=== PATIENT | female | born 1960 | race Caucasian/White ===

== ENCOUNTER 2017-08-08 21:11 | Emergency (ER) | payer OTHER ==
[~2017-08-08] VITALS: Ht 188 cm; Wt 110.0 kg
[~2017-08-08 21:11] MED LIST: ALEVE220 M2 OR; AMOXICILLIN500 MG OR; AMOXICILLIN500 MG PO; ASPIRIN LOW DOS81 M2 PO; FLEXERIL PO; GABAPENTIN100 MG PO; GABAPENTIN600 MG PO; GLIPIZIDE10 MG PO; GLIPIZIDE5 MG PO; LANTUS100 MG/ML SC; LASIX 40 MG40 MG/TAB PO; LASIX 80 MG TAB80 M1 PO; LASIX40 MG PO; LEVAQUIN500 MG PO; LISINOP/HCTZ1 TA1 PO; LORTAB 1010 MG PO; MEGACE20 MG/TAB PO; MELOXICAM15 MG PO; METFORMIN HCL1000 MG PO; METFORMIN500 M1 PO; METFORMIN500 M2 OR; METFORMIN500 M2 PO; PERCOCET 5/325M1 TAB OR; POT CHLORIDE10 ME5 PO; PREDNISONE20 MG PO; QVAR80 MCG IN; TRAMADOL HCL50 MG PO; ULTRAM50 M1 PO; ULTRAM50 MG OR; VENTOLIN HFA IN
[2017-08-08] MEDS ORDERED: ULTRAM50 M1 PO (21:53)
[2017-08-08 22:11] VITALS: BP 171/84
== END 2017-08-08 22:12 | disposition home or self-care (01) | DRG 556 ==
LOC: ED 21:11
DX: M79.672 Pain in left foot (principal); S90.32XA Contusion of left foot, initial encounter; W19.XXXA Unspecified fall, initial encounter

== ENCOUNTER 2019-01-04 11:42 | Emergency (ER) | payer OTHER ==
[~2019-01-04] VITALS: Ht 180.3 cm; Wt 129.5 kg
[~2019-01-04 11:42] MED LIST changes: +ADULT ASPIRIN E81 MG PO; +ALPRAZOLAM0.5 M2 PO; +APRESOLINE25 MG/TAB PO; +CARVEDILOL12.5 MG PO; +CARVEDILOL6.25 MG PO; +COREG6.25 MG PO; +CYMBALTA30 MG PO; +DOXYCYCL HYC100 MG PO; +FUROSEMIDE80 M1 PO; +LEVEMIR100 UNIT/M SC; +LIPITOR40 M1 PO; +LISINOPRIL20 M1 PO; +NEURONTIN600 MG PO; +VITAMIN D50000 UNIT PO
[2019-01-04 12:14] LABS: HEMATOCRIT 27.6 % (37.0-47.0); HEMOGLOBIN 8.5 g/dl (12.0-16.0); IMMATURE GRANULOCYTES 0.6 % (0.0-5.0); MEAN CORPUSCULAR HGB 24.9 pG CALC (26.0-32.0); MEAN CORPUSCULAR HGB CONC 30.8 g/L CALC (32.0-36.0); NEUT# 5.32 thou/uL (2.00-7.15); RED BLOOD COUNT 3.41 mill/uL (4.20-5.60)
[2019-01-04 12:32] LABS: MEAN CELL VOLUME 80.9 fL CALC (80.0-100.0)
[2019-01-04 12:39] LABS: ALBUMIN 3.5 g/dL (3.2-5.0); CREATININE 2.3 mg/dL (0.5-1.0); PROTHROMBIN TIME 10.1 SECONDS (9.0-12.5); TOTAL PROTEIN 6.5 g/dL (6.3-8.2)
[2019-01-04 12:51] LABS: BILIRUBIN, TOTAL 0.3 mg/dL (0.0-1.4)
[2019-01-04 14:29] VITALS: BP 139/52
[2019-01-04 14:40] VITALS: BP 139/52
== END 2019-01-04 14:28 ==
LOC: ED 11:42
PROVIDERS: Family Medicine
DX: K92.2 Gastrointestinal hemorrhage, unspecified (principal); D64.9 Anemia, unspecified; E11.65 Type 2 diabetes mellitus with hyperglycemia; Z79.4 Long term (current) use of insulin; R53.1 Weakness; R00.2 Palpitations; R25.2 Cramp and spasm; R94.31 Abnormal electrocardiogram [ECG] [EKG]
CPT/HCPCS: P9016

== ENCOUNTER 2020-04-10 13:07 | Inpatient (IN) | payer MEDICARE, OTHER ==
[~2020-04-10] VITALS: Ht 180.3 cm; Wt 142.4 kg
[2020-04-10] VITALS (7 sets, daily range): BP systolic 153–211; BP diastolic 11–111
--- NOTE | 2020-04-10 13:07 | NUR ---
PT TO ROOM VIA W.C
--- NOTE | 2020-04-10 13:36 | NUR ---
PT SEEN BY DR THOMAS AT THIS TIME, SHORT OF BREATH STATED X 3 WEEKS.
[2020-04-10 14:52] LABS: HEMATOCRIT 29.5 % (37.0-47.0); HEMOGLOBIN 8.3 g/dl (12.0-16.0); IMMATURE GRANULOCYTES 0.3 % (0.0-5.0); MEAN CELL VOLUME 90.8 fL CALC (80.0-100.0); MEAN CORPUSCULAR HGB 25.5 pG CALC (26.0-32.0); MEAN CORPUSCULAR HGB CONC 28.1 g/dL CAL (32.0-36.0); NEUT# 6.43 thou/uL (2.00-7.15); RED BLOOD COUNT 3.25 mill/uL (4.20-5.60); RED CELL DISTRI WIDTH 14.9 % (11.5-15.5)
[2020-04-10 15:24] LABS: ALBUMIN 3.3 g/dL (3.2-5.0); CREATININE 4.4 mg/dL (0.5-1.0); POTASSIUM 4.4 mmol/l (3.5-5.1); TOTAL PROTEIN 6.8 g/dL (6.3-8.2)
[2020-04-10 15:34] LABS: BILIRUBIN, TOTAL 0.3 mg/dL (0.0-1.4)
[2020-04-10 15:43] LABS: URINE BILIRUBIN - DIPSTICK NEGATIVE (NEGATIVE); URINE BLOOD DIPSTICK MODERATE (NEGATIVE); URINE COLOR YELLOW; URINE GLUCOSE - DIPSTICK 250 mg/dL (NEGATIVE); URINE KETONE NEGATIVE (NEGATIVE); URINE LEUK ESTERASE NEGATIVE (NEGATIVE); URINE NITRITE - DIPSTICK NEGATIVE (Negative); URINE PROTEIN - DIPSTICK >=300 mg/dL (NEG-TRACE); URINE SPECIFIC GRAVITY 1.025; URINE UROBILINOGEN - DIPSTICK 0.2 E.U./dL (0.2)
[2020-04-10 15:52] LABS: URINE SQUAMOUS EPITHELIAL CELL FEW EPI/hpf (0-FEW)
[2020-04-10] MEDS ORDERED: NIFEDIPINE30 MG PO (19:18)
--- NOTE | 2020-04-10 19:24 | NUR ---
RECEIVED HAND OFF REPORT FROM SHERI, PATIENT AWAKE AND ALERT, REFUSING CONTINUED VITAL MONITORING. PATIENT REFUSED ADMINISTRATION OF LASIX, STATES THAT HER DOCTOR DOES NOT WANT HER TO TAKE LASIX R/T HER KIDNEY FUNCTION, NOTIFIED.
--- NOTE | 2020-04-10 19:31 | NUR ---
PATIENT AWAITING ORDERS FROM ADMITTING PHYSICIAN BEFORE TRANSFER TO INPATIENT TREATMENT ROOM.
--- NOTE | 2020-04-10 20:15 | NUR ---
HAND OFF REPORT GIVEN TO INPATIENT ICU NURSE, PATIENT TO ICU BED 8.
[2020-04-10] MEDS ORDERED: LIPITOR40 M1 PO (20:41)
[2020-04-10] MEDS ORDERED: VENTOLIN HFA IN (20:42)
--- NOTE | 2020-04-10 21:00 | NUR ---
PT. ARRIVED TO THE FLOOR VIA STRETCHER ACCOMPANIED BY ER NURSE @2029. PT. IS WITH LABORED BREATHING AND EXERTIONAL SOB NOTED WELL. CARBON FURNACE OPERATOR HELPER APPLIED AND READING SR. SPO2 WNL ON 2LITERS/MIN PER NC. PT. DENIES WEARING ANY AT HOME. REPORTING SOB X3 WEEKS AND REPORTS SHE WILL NOT TAKE LASIX HER DR (DR. BOSTON), INSTRUCTED HER NOT TO TAKE THIS MEDICATION IT IS DAMAGING TO THE KIDNEYS. WILL NOTIFY PRIMARY MD OF THIS. UPDATED ON POC. TRACE EDEMA NOTED TO BLE AND SOME EDEMA NOTED TO ABDOMEN. B/P IS ELEVATED WILL NOTIFY MD WELL FOR B/P MEDICATIONS. IV SITE PATENT AND SL TO RIGHT HAND. ERICA HOSE APPLIED TO BLE. PT. REPORTS LAST BM APPROXIMATELY 3 DAYS AGO, BUT REPORTS INTERMITTENT DIARRHEA FOR THE PAST 3 WEEKS AND DECLINES LAXATIVE. ENCOURAGED TO CALL FOR ANY NEEDS. CALL LIGHT IS IN REACH. WILL CONTINUE TO MONITOR.
--- NOTE | 2020-04-10 21:21 | NUR ---
NOTIFIE DR. PADGETT OF PT'S REFUSAL OF LASIX WELL WHO IS PT'S KINDEY ALSO NOTIFIED HIM OF ELEVATED B/P 190/81; NEW ORDERS RECIEVED AND TO BE CARRIED OUT.
--- NOTE | 2020-04-10 21:52 | NUR ---
AFTER MORE EDUCATION PT. DID AGREE TO TAKE PM DOSE OF LASIX. MEDICATED WITH PRN APRESOLINE FOR B/P ; WILL REASSESS AND CONTINUE TO MONITOR.ALSO MEDICATED WITH OTHER PM MEDS. PT. PROVIDED WITH DINNER MEAL. ENCOURAGED TO CALL FOR ANY NEEDS. CALL LIGHT IS IN REACH.
[2020-04-11] VITALS (68 sets, daily range): BP systolic 61–176; BP diastolic 45–83
--- NOTE | 2020-04-11 | NUR ---
PT. RESTING IN BED WITH NO DISTRESS NOTED; DENIES NEEDS. CALL LIGHT IS IN REACH. B/P WNL(150/67). WILL CONTINUE TO MONITOR.
--- NOTE | 2020-04-11 02:18 | NUR ---
PT. COUGHING AND INDUCED VOMITING; EMESIS NOTED TO BASIN ALONG WITH WHITE SPUTUM; MEDICATED WITH ONE TIME ZOFRANAND IV SITE FLUSHED. PT. HAS STRESS INCONTINENCE AND ASSISTED WITH MONICA CARE AND MONICA PAD CHANGED AT THIS TIME. MOUTHWASH PROVIDED. ENCOURAGED TO CALL FOR ANY NEEDS. CALL LIGHT IS IN REACH.
--- NOTE | 2020-04-11 04:00 | NUR ---
resting in bed with eyes closed; resp. even and unlabored. call light is in reach.
--- NOTE | 2020-04-11 05:48 | NUR ---
PT. RESTING IN BED ON RIGHT SIDE WITH EYES CLOSED; AROUSES EASILY. O2 INFUSING @2LITERS/MIN AND SPO2 88%; INCREASED TO 3LITERS/MIN AND SPO2 UP TO 93%. WILL CONTINUE TO MONITOR. VSS. DENIES NEEDS. CALL LIGHT IS IN REACH. COMMODE EMPTIED.
--- NOTE | 2020-04-11 06:45 | NUR ---
REPORT RECEIVED FROM DONATO DOZIER. CARE ASSUMED.
[2020-04-11 06:47] LABS: CHOLESTEROL HDL RATIO 2.7 (<4.4 (CALC)); MAGNESIUM 1.4 mg/dL (1.6-2.3)
--- NOTE | 2020-04-11 07:00 | NUR ---
PT SITTING UP ON SIDE OF BED. PT HAS TAKEN OFF O2. PT ENCOURAGED TO GET BACK IN BED. PLACED PT BACK ON O2. PT IS ALERT AND ORIENTED X3. SHIFT ASSESSMENT COMPLETED AT THIS TIME. IV PATENT X1. PT REQUESTED WATER. GAVE CUP FROM BEDSIDE TABLE. PT STATES THIS WATER IS HOT. EXPLAINED WOULD BRING ICE WATER. THIS NURSE RETURNED TO ROOM WITH ICE WATER AND PATIENT HAD THROWN CUP OF WATER ON FLOOR. CLEANED WATER OFF OF FLOOR AND PT STATES YOU GONNA GET ME THAT WATER. ICE WATER POURED FOR PATIENT. CALL LIGHT IN REACH. WILL CONTINUE TO MONITOR.
[2020-04-11 07:37] LABS: BILIRUBIN, TOTAL 0.2 mg/dL (0.0-1.4); CREATININE 4.4 mg/dL (0.5-1.0); POTASSIUM 4.6 mmol/l (3.5-5.1); TOTAL PROTEIN 6.3 g/dL (6.3-8.2)
--- NOTE | 2020-04-11 10:04 | NUR ---
RT AT BEDSIDE FOR 6 MINUTE WALK TEST. PT QUALIFIES FOR HOME O2
--- NOTE | 2020-04-11 10:05 | NUR ---
PHONED SON WITH NUMBER ON CHART NUMBER DISCONNECTED. CALLED HOME NUMBER ON CHART LEFT MESSAGE TO CALL ICU IN REFERENCE TO GIVE UPDATE AND FIND OUT MOTHERS BASELINE
--- NOTE | 2020-04-11 10:24 | NUR ---
PT APPEARS TO BE MORE LETHARGIC. PT REMAINS ALERT AND ORIENTED X3. RT AT BEDSIDE FOR ABG. ACCU CHECK 161. PT ASSISTED BACK UP TO BED.
--- NOTE | 2020-04-11 10:30 | NUR ---
Snehal SUE APRN NOTIFIED OF ABG RESULTS.
--- NOTE | 2020-04-11 10:41 | NUR ---
VERBAL ORDERS RECEIVED TO PLACE PATIENT ON BIPAP.
--- NOTE | 2020-04-11 10:45 | NUR ---
LOZADA PLACED USING STERILE TECHNIQUE. IMMEADIATE RETURN OF CLOUDY URINE WITH SEDIMENT. PT TOLERAED WELL. RT AT BEDSIDE TO PLACE PT ON BIPAP. J VEST SACK SEWER ON UNIT TO REASSESS PT.
--- NOTE | 2020-04-11 11:06 | NUR ---
PT PLACED ON BIPAP S/P ABG OBTAINED FOR CHANGE IN MENTATION. CURRENT BIPAP SETTINGS MAINTAINING SUFFICENT MIN VENTILATION. PT RESTING COMFORTABLY, ABG TO BE OBTAINED IN 1 HOUR S/P INITIATION OF BIPAP. MECHANICAL INVASIVE VENTILATOR ALONG WITH INTUBATION EQUIPMENT AND BMV AT THE BEDSIDE ON S/B.
--- NOTE | 2020-04-11 11:30 | NUR ---
RT AT BEDSIDE FOR REPEAT ABG.
[2020-04-11 11:36] LABS: C-REACTIVE PROTEIN 1.6 mg/dL (0-0.9)
--- NOTE | 2020-04-11 11:45 | NUR ---
Snehal SUE APRN NOTIFIED OF ABG RESULTS. DR PADGETT AND DR C[place] NOTIFIED WELL. IT WAS DECIDED TO INTUBATE PATIENT AT THIS TIME. DR THOMAS IN ER CALLED TO COME AND ASSIST WITH SEDATION, INTUBATION, AND CENTRAL LINE PLACEMENT.
--- NOTE | 2020-04-11 12:10 | NUR ---
DR THOMAS AT BEDSIDE 1219- CENTRAL LINE PLACED RIGHT FEMORAL 1221- ETOMIDAE 20MG IVP BY DR THOMAS 1222- SUUCINLCHOLINE 100MG IVP BY DR THOMAS 1223- 8.0 ET TUBE 24@ LIP VERIFIED BY AUSCULTATION AND POSITIVE COLOR CHANGE ON CO2 INDICATOR 1225- OG PLACED AND VERIFIED BY AUSCULTATION 1228- RADIOLOGY AT BEDSIDE FOR CXR FOR VERIFICAION OF TUBE PLACEMENT 1230- BILATERAL SOFT WRIST RESTRAINTS PLACED ON PT 1235- #22 RH DC'D DUE TO OCCLUSION CATH TIP INTACT
--- NOTE | 2020-04-11 12:30 | NUR ---
CBC AND NOON TROPONIN OBTAINED FROM [facility] AND SENT TO LAB AT THIS TIME.
--- NOTE | 2020-04-11 12:39 | NUR ---
PHONED HOME NUMBER TO UPDATE THAT PT HAD BEEN INTUBATED. LEFT MESSAGE TO CALL ICU.
--- NOTE | 2020-04-11 12:45 | NUR ---
PT NOTED TO HAVE HYPOTENSION. IVF STARTED AT THIS TIME. Eulalia VYAS APRN AT BEDSIDE TO EVALUATE PATIENT WELL. ORDERS RECEIVED TO GIVE 500CC NS BOLUS. GAVE OFF OF IVF HANGING. WILL CONTINUE TO CLOSELY MONITOR
[2020-04-11 12:50] LABS: HEMATOCRIT 27.6 % (37.0-47.0); HEMOGLOBIN 7.5 g/dl (12.0-16.0); IMMATURE GRANULOCYTES 0.8 % (0.0-5.0); MEAN CELL VOLUME 94.2 fL CALC (80.0-100.0); MEAN CORPUSCULAR HGB 25.6 pG CALC (26.0-32.0); MEAN CORPUSCULAR HGB CONC 27.2 g/dL CAL (32.0-36.0); NEUT# 6.74 thou/uL (2.00-7.15); RED BLOOD COUNT 2.93 mill/uL (4.20-5.60); RED CELL DISTRI WIDTH 15.2 % (11.5-15.5)
--- NOTE | 2020-04-11 13:00 | NUR ---
DR PADGETT NOTIFIED OF CBC RESULTS AND HYPOTENSION. NEW ORDERS RECIEVED. HE WILL NOTIFY DR BOSTON OF CONSULT
--- NOTE | 2020-04-11 13:01 | NUR ---
PT INTUBATED BY DR. THOMAS AT 12:23 ET TUBE 8.0 SECURED 22 @ LIP. PT PLACED ON VENTILATOR WITH ORDERED SETTINGS. ABG ORDERED FOR ONE HR.
--- NOTE | 2020-04-11 13:45 | NUR ---
RT AT BEDSIDE FOR REPEAT ABG.
--- NOTE | 2020-04-11 14:00 | NUR ---
DR PADGETT CALLED WITH ABG RESULTS. NEW ORDERS RECEIVED.
--- NOTE | 2020-04-11 14:03 | NUR ---
ABG RESULTS CALLED TO DR. PADGETT BY JACOBY CARVER. RR INCREASED TO 22 FIO2 DECREASED TO 50% WILL REPEAT ABG IN ONE HR.
--- NOTE | 2020-04-11 14:25 | NUR ---
TYPE AND SCREEN COMPLETED FROM [facility] BY THIS NURSE AND Indra ATKINSON. PT REMAINS INTUBATED AND SEDATED. VSS ON MONITOR. WILL CONTINUE TO MONITOR.
--- NOTE | 2020-04-11 14:44 | NUR ---
PHONED HOME PHONE [phone] LEFT MESSAGE AGAIN. ATTEMPTING TO OBTAIN CONSENT TO GIVE BLOOD.
--- NOTE | 2020-04-11 14:54 | NUR ---
FRIEND ZACK CALLED GAVE INCORRECT CODE ASKED TO HAVE HER DAUGHTER CALL ICU.
--- NOTE | 2020-04-11 15:00 | NUR ---
SPOKE WITH DAUGHTER NETTA ORTIZ WHO GAVE TELEPHONE VERBAL CONSENT WITH WITNESS Indra ATKINSON.
--- NOTE | 2020-04-11 15:30 | NUR ---
1 UNIT OF PRBCS STARTED AT THIS TIME VIA [facility].
--- NOTE | 2020-04-11 15:38 | NUR ---
RT AT BEDSIDE AT THIS TIME FOR REPEAT ABG.
--- NOTE | 2020-04-11 15:45 | NUR ---
DAUGHTER NETTA PHONED FOR UPDATE WITH MULTIPLE PEOPLE ON PHONE. UPDATE PROVIDED.
--- NOTE | 2020-04-11 15:49 | NUR ---
DR PADGETT PHONED BACK THAT HE SPOKE WITH [facility] INSTANTIZER OPERATOR AND HE WILL CALL PERSONAL ASSISTANT MD.
--- NOTE | 2020-04-11 16:00 | NUR ---
$1010.00 REMOVED FROM PT ROOM VERIFIED WITH NURSING INVESTMENT PROFESSIONAL Travon BOWER AND PLACED IN SEALED TAMPER PROOF ENVELOPE. DUE TO PATIENT BEING TRANSFERRED THE SEALED ENVELOPE WILL BE SENT WITH PATIENT TO CIRILO KESSLER.
--- NOTE | 2020-04-11 16:11 | NUR ---
ABG RESULTS 15:49 7.28/39.7/173/18.2 DECREASED RATE TO 18 AND FIO2 40%. JACOBY VÁZQUEZ.
--- NOTE | 2020-04-11 16:14 | NUR ---
SON PLACIDO ON UNIT. UPDATED ON STATUS AND PENDING TRANSFER. ONLY OBSERVED THROUGH DOOR
--- NOTE | 2020-04-11 16:27 | NUR ---
PT RESTING IN BED INTUBATED AND SEDATED. VSS ON MONITOR. WILL CONTINUE TO CLOSELY MONITOR.
--- NOTE | 2020-04-11 17:45 | NUR ---
PT RESTING IN BED INTUBATED AND SEDATED. NOTED TO HAVE SOME MORE FREQUENT PVCS THAN THIS AM ALSO NOTED TO HAVE SOME BIGEMINY ON THE MONITOR WELL. DR PADGETT NOTED OF CHANGE.
--- NOTE | 2020-04-11 18:00 | NUR ---
KRISTEN NURSING MOBILE HEAVY EQUIPMENT OPERATOR PHONED AND REQUESTED FACE SHEET BE FAXED TO [phone]. FACE SHEET FAXED. SHE REQUESTED THAT DR. PADGETT SPEAK TO DR HARDWICK. EXPLAINED THAT DR PADGETT HAD PHONED TWICE AND SENT A TEXT WITH NO RETURN CALL. KRISTEN NURSING MOBILE HEAVY EQUIPMENT OPERATOR REQUESTED THAT PT HAVE A RAPID COVID SWAB.
--- NOTE | 2020-04-11 18:10 | NUR ---
RAPID COVID SWAB OBTAINED AT THIS TIME AND SENT TO LAB FOR ANALYSIS.
--- NOTE | 2020-04-11 18:27 | NUR ---
DR PADGETT CALLED AND STATES THAT DR HARDWICK HAD ACCEPTED.
--- NOTE | 2020-04-11 18:31 | NUR ---
PHONED HENNY SPOKE WITH [facility] TO SET UP TRANSPORT. ETA 2 1/2 HOURS
--- NOTE | 2020-04-11 19:00 | NUR ---
RESTING CALMLY AND QUIETLY ON ROUNDS, ON VENT AND SEDATED ON PROPOFOL. VSS. MONITOR SR.
--- NOTE | 2020-04-11 19:45 | NUR ---
VALUABLES ENVELOPE CONTAINING GARRIDO BROUGHT TO SAFE BY NURSING BLOCK PRESS OPERATOR LEIGH MOSER/JACOBY.
--- NOTE | 2020-04-11 20:00 | NUR ---
PATIENT ORALLY INTUBATED WITH #8 ETT, 24 CM AT LIP LINE, ON VENT. VENT SETTINGS TV-450, A/C RATE -18, FIO2-50%, PEEP 6, PS-0. BREATH SOUNDS DIMINISHED THROUGHOUT LUNG BOWER. SUX ORALLY FOR LARGE AMOUNT THICK CLEAR SECREYTIONS AND ETT SUX FOR SCANT CLEAR. OG IN PLACE TO LIS DRAINS PALE YELLOW-GREEN WITH SOME DARK FLECKS. ABD OBESE, FIRM WITH HYPOACTIVE BOWEL SOUNDS. LOZADA IN PLACE NO URINE TO OBSERVE AT THIS TIME. PERIPHERAL PULSES PALPABLE. TRACE GENERALIZED EDEMA. RIGHT FEMORAL TLC IN PLACE. NS INFUSING AT 80 ML/HR AND PROPOFOL AT 65 MCG. BELLA -3. MEDIUM CYCLE SALESPERSON SHOWS SR WITH OCC PVC. RAPID COVID SWAB RESULTS ARE NEGATIVE. PHONED NURSING STEAMFITTER SUPERVISOR KRISTEN AT R INFORMED OF NEGATIVE COVID SWAB. ROOM ASSIGNMENT CHANGED TO 242.
--- NOTE | 2020-04-11 20:30 | NUR ---
PATIENT BROTHER ROXANA PHONED FOR CONDITION UPDATE.
--- NOTE | 2020-04-11 21:20 | NUR ---
[facility] HERE FOR TRANSFER.
--- NOTE | 2020-04-11 21:45 | NUR ---
PATIENT LEFT UNIT VIA STRETCHER ACCOMPANIED BY [facility] STAFF.
--- NOTE | 2020-04-11 21:55 | NUR ---
REPORT CALLED TO MARU/JACOBY AT [facility]-
== END 2020-04-11 21:45 | DRG 291 ==
LOC: ED 13:07 → ED-I 13:44 → ED 13:44 → ED-I 18:37 → ICU 18:43 → ED 18:43 → ICU 04-11 21:45
PROVIDERS: Nurse Practitioner Family; Student in an Organized Health Care Education/Training Program; ADMIT Internal Medicine; ATTEND Internal Medicine
PROC: 5A09357 Assistance with Respiratory Ventilation, Less than 24 Consecutive Hours, Continuous Positive Airway Pressure (ICD-10-PCS; principal; 2020-04-11)
PROC: 5A1935Z Respiratory Ventilation, Less than 24 Consecutive Hours (ICD-10-PCS; 2020-04-11)
PROC: 0T9B70Z Drainage of Bladder with Drainage Device, Via Natural or Artificial Opening (ICD-10-PCS; 2020-04-11)
PROC: 06HY33Z Insertion of Infusion Device into Lower Vein, Percutaneous Approach (ICD-10-PCS; 2020-04-11)
PROC: 0BH17EZ Insertion of Endotracheal Airway into Trachea, Via Natural or Artificial Opening (ICD-10-PCS; 2020-04-11)
PROC: 30233N1 Transfusion of Nonautologous Red Blood Cells into Peripheral Vein, Percutaneous Approach (ICD-10-PCS; 2020-04-11)
DX: I13.2 Hypertensive heart and chronic kidney disease with heart failure and with stage 5 chronic kidney disease, or end stage renal disease (principal); J96.02 Acute respiratory failure with hypercapnia; J96.01 Acute respiratory failure with hypoxia; N17.9 Acute kidney failure, unspecified; J44.1 Chronic obstructive pulmonary disease with (acute) exacerbation; N18.5 Chronic kidney disease, stage 5; E87.2 Acidosis; I50.9 Heart failure, unspecified; E11.22 Type 2 diabetes mellitus with diabetic chronic kidney disease; E11.40 Type 2 diabetes mellitus with diabetic neuropathy, unspecified; Z79.4 Long term (current) use of insulin; Z20.828 Contact with and (suspected) exposure to other viral communicable diseases
CPT/HCPCS: J3475; P9016; S0164

== ENCOUNTER 2020-06-16 12:17 | Observation (INO) | payer MEDICARE, OTHER ==
[~2020-06-16] VITALS: Ht 180.3 cm; Wt 140.8 kg
[~2020-06-16 12:17] MED LIST changes: +NIFEDIPINE30 MG PO
--- NOTE | 2020-06-16 13:35 | NUR ---
PT TO ROOM VIA WHEELCHAIR FOR BEDSIDE TRIAGE
--- NOTE | 2020-06-16 13:48 | NUR ---
PT CALLS REQUESTING HOB DOWN, ASSISTANCE WITH TV AND A PILLOW, PROVIDED REQUESTED
--- NOTE | 2020-06-16 14:45 | NUR ---
PT RESTING NO NEW COMPLAINTS CALL JEREL CR
[2020-06-16 15:37] LABS: HEMATOCRIT 30.3 % (37.0-47.0); IMMATURE GRANULOCYTES 0.4 % (0.0-5.0); MEAN CELL VOLUME 91.8 fL CALC (80.0-100.0); MEAN CORPUSCULAR HGB 27.3 pG CALC (26.0-32.0); MEAN CORPUSCULAR HGB CONC 29.7 g/dL CAL (32.0-36.0); NEUT# 4.76 thou/uL (2.00-7.15); RED BLOOD COUNT 3.3 mill/uL (4.20-5.60); RED CELL DISTRI WIDTH 15.3 % (11.5-15.5)
--- NOTE | 2020-06-16 15:45 | NUR ---
P[T RESTING NO NEW COMPLATINS AWARE OF PLANNED ADMISSION WHEN TELE AVAIALABLE FOR LINE PLACEMENT TOMORROW
[2020-06-16 15:52] LABS: POTASSIUM 5.3 mmol/l (3.5-5.1)
--- NOTE | 2020-06-16 16:20 | NUR ---
PT RESTING WITH EYES CLOSED AWARWE OF DINNER TRAY DUE AT 1730ISH
--- NOTE | 2020-06-16 17:00 | NUR ---
PT RESTING AWARE OF PLANNED ADMISSION, NO COMPLAINTS OFFERED
[2020-06-16] MEDS ORDERED: NEURONTIN100 MG PO (17:09)
--- NOTE | 2020-06-16 18:15 | NUR ---
REPORT CALLED TO ORION LAWSON ON MED SURG
--- NOTE | 2020-06-16 18:55 | NUR ---
PT TRANSPORTED TO MED SURG VIA WHEELCAHIR ON TELE ACCEPTIONG NURSE AT BEDSIDE ON ARRIVAL, ALL BELONGING SENT WITH PT
[2020-06-16 19:26] VITALS: BP 147/74
--- NOTE | 2020-06-16 20:00 | NUR ---
PATIENT RESTING IN BED AT THIS TIME-AWAKE ALERT AND ORIENTEDX3. PATIENT WITH TELE MONITOR IN PLACE. SALINE LOCK TO LAC INTACT AND HEALTHY AT THIS TIME. FLUSHES WITHOUT ANY DIFFICULTY. PATIENT WITH RIGHT UPPER CHEST DIALYSIS CATH INTACT WITH DRESSING IN PLACE. PATIENT STATES THAT SHE WENT FOR DIALYSIS TODAY AND THE DIALYSIS CATH WAS DISLODGED. DIALYSIS WAS NOT ABLE TO BE DONE. PATIENT STATES THAT SHE SEES A DR. IRBY IN [place] AND THAT HE PLACED THE TESSIO LAST TIME. SHE ALSO HAS AN APPT WITH HIM FOR AC FIST[place]A THE BEGINNING OF JUL. FOR PRE-OP ON 07/01 AND SURGERY ON 07/03. WOULD LIKE FOR HIM TO REPLACE THIS CATH IF NECCESARY. EXPLAINED TO PATIENT THAT DR. STEPHENS HAS BEEN CONSULTED HERE FOR REPLACEMENT, PATIENT WOULD LIKE TO SPEAK WITH THE DOCTORS BEFORE ANY PROCEDURE IS DONE. NO DIALYSIS SINCE LAST TUESDAY. PATIENT ATE DINNER AND TOLERATED WELL. ORIENTED TO ROOM AND SURROUNDINGS. INSTRUCTED ON USE OF NURSE CALL LIGHT SYSTEM, TV REMOTE, AND PHONE. SAFETY PRECAUTIONS REVIEWED. CALL LIGHT IN REACH. WILL CONT TO MONITOR.
--- NOTE | 2020-06-16 21:15 | NUR ---
[id number]. SS COVERAGE GIVEN-4 UNITS OF NOVALOG SQ. OFFERED HS SNACK BUT DECLINED. INSTRUCTED REGUARDING NPO STATUS AFTER MN AND VERBALIZES UNDERSTANDING. CALL LIGHT IN REACH. WILL CONT TO MONITOR.
[2020-06-16 23:20] VITALS: BP 137/69
[2020-06-17] VITALS (7 sets, daily range): BP systolic 130–180; BP diastolic 67–80
--- NOTE | 2020-06-17 | NUR ---
PATIENT APPEARS SLEEPING AT THIS TIME WITH EYES CLOSED. RESPS ARE EVEN AND UNLABORED. TELE MONITOR IN PLACE. CALL LIGHT IN REACH. WILL CONT TO MONITOR.
--- NOTE | 2020-06-17 04:07 | NUR ---
PATIENT APPEARS SLEEPING AT THIS TIME WITH EYES CLOSED. RESPS ARE EVEN AND UNLABORED. TELE MONITOR IN PLACE. SALINE LOCK TO LAC INTACT. CALL LIGHT IN REACH. WILL CONT TO MONITOR.
--- NOTE | 2020-06-17 05:28 | NUR ---
PATIENT ASSISTED WITH TAKING OF BRA FOR CXR AT BEDSIDE. PATIENT IS NPO. STATES THAT SHE WANTS TO GO TO [place] ON [address] TO SEE DR. IRBY FOR ANY TREATMENT REGUARDING HER DIALYSIS CATH. DRESSING TO DIALYSIS REINFORCED. CALL LIGHT IN REACH. WILL CONT TO MONITOR.
[2020-06-17 05:34] LABS: HEMATOCRIT 31.3 % (37.0-47.0); HEMOGLOBIN 9.2 g/dl (12.0-16.0); IMMATURE GRANULOCYTES 0.4 % (0.0-5.0); MEAN CELL VOLUME 92.1 fL CALC (80.0-100.0); MEAN CORPUSCULAR HGB 27.1 pG CALC (26.0-32.0); MEAN CORPUSCULAR HGB CONC 29.4 g/dL CAL (32.0-36.0); NEUT# 4.54 thou/uL (2.00-7.15); RED BLOOD COUNT 3.4 mill/uL (4.20-5.60); RED CELL DISTRI WIDTH 15.2 % (11.5-15.5)
[2020-06-17 05:54] LABS: ALBUMIN 3.5 g/dL (3.2-5.0); BILIRUBIN, TOTAL 0.2 mg/dL (0.0-1.4); TOTAL PROTEIN 6.6 g/dL (6.3-8.2)
[2020-06-17 06:04] LABS: CREATININE 8.7 mg/dL (0.5-1.0); POTASSIUM 5.6 mmol/l (3.5-5.1)
--- NOTE | 2020-06-17 06:11 | NUR ---
RECIEVED CALL FROM RYANN IN LAB-CRITICAL LABS-BUN-96, CREAT-8.7. ADMITTING DX ESRD-DIALYSIS PATIENT. WILL CONT TO MONITOR.
--- NOTE | 2020-06-17 07:30 | NUR ---
PATIENT IN BED AT THIS TIME ALERT AND ORIENTED X3 CALL LIGHT NEAR SIDERAILS UP X 2. PATIENT DENIES ANY PAIN. TESSEO CATH SITE ON CHEST WALL COVERED AT THIS TIME. ALL SAFETY MEASURES ARE IN PLACE. PATIENT REMAINS NPO AT THIS TIME.
--- NOTE | 2020-06-17 08:12 | NUR ---
AT BEDSIDE DISCUSSING POC WITH PT.
--- NOTE | 2020-06-17 10:37 | NUR ---
AT BEDSIDE DISCUSSING POC.
--- NOTE | 2020-06-17 10:48 | NUR ---
RESP PANEL SENT TO LAB AT THIS TIME PER ORDER.
--- NOTE | 2020-06-17 12:06 | NUR ---
PATIENT IN BED AT THIS TIME DENIES PAIN, ALLERGY BRACELETT ON AT THIS TIME CALL LIGHT WITHIN REACH. SURGERY RN UP TO SEE PATIENT.SIDERAILS UP X 2.
--- NOTE | 2020-06-17 12:28 | NUR ---
PT TRANSPORTED TO OR IN STABLE CONDITION VIA STRETCHER ACCOMPANIED BY JACOBY WILLIAM.
--- NOTE | 2020-06-17 15:05 | NUR ---
PATIENT RETURN BACK TO FLOOR FROM SURGERY AT THIS TIME AND REPORT RECEIVED FROM NURSE TURNER. PATIENT TRANSFERED BACK TO BED AT THIS TIME X 2 ASSIST. PATIENT HAS TWO SURGICAL PUNCTURE WOUNDS TO LEFT SIDE OF NECK COVERED WITH DERMABOND. NO REDNESS OR DRAINAGE NOTED. PATIENT HAS A DRESSING TO THE LEFT UPPER CHEST WALL THAT IS DRY AND INTACT AT THIS TIME. ALL SAFETY MEASURES ARE IN PLACE AND CALL LIGHT WITHIN REACH. PATIENT EDUCATED ON CALLING OUT FOR HELP PRIOR TO GETTING UP. PATIENT VERBALIZES UNDERSTANDING OF FALL SAFETY.
--- NOTE | 2020-06-17 15:20 | NUR ---
PATIENT MEDICATED AT THIS TIME FOR PAIN OF 4 OUT OF 0-10 WITH 650MG OF TYLENOL AT THIS TIME.
--- NOTE | 2020-06-17 16:30 | NUR ---
PATIENT IN BED AT THIS TIME, PATEINT STATES THAT HER PAIN LEVEL IS SLOWLY COMING DOWN AND IS NOW A 6 OUT OF A PAIN SCALE OF 0-10. LEFT CHEST WALL DRESSING REMAINS DRY AND INTACT. DERMABOND REMAINS ON TWO LEFT SURGICAL SITES AND WITHOUT OF ANY SIGNS REDDNESS OR DRAINAGE AT THIS TIME. ALL SAFETY MEASURES ARE IN PLACE CALL LIGHT NEAR.
--- NOTE | 2020-06-17 18:00 | NUR ---
PT RESTING ON THE BEDSIDE AT THIS TIME; ALL DISCHARGE INSTRUCTIONS PROVIDED AT THIS TIME;PT INSTRUCTED TO FOLLOW UP WITH PCP AND WITHIN THE WEEK,CONTINUE CURRENT MEDICATION;BE CAREFUL WITH CURRENT DIALYSIS PORT AND FOLLOW UP IN DEC FOR FISTULA PLACEMENT;PT VERBALIZES UNDERSTANDING AND DENIES ANY ADDITIONAL QUESTIONS OR NEEDS;IV SITE REMOVED WITH CATHETER INTACT;PT BP ELEVATED AND OZZIE ANRP NOTIFIED.NO NEW ORDERS RECEIVED AT THIS TIME, PER ANRP IT IS OK TO D/C PT HOME;WHEELCHAIR TO BE PROVIDED FOR D/C HOME;PT TO TRANSPORT SELF HOME;WILL CONTINUE TO MONITOR
--- NOTE | 2020-06-17 18:16 | NUR ---
Discharge instructions given. Patient verbalizes understanding of same. Discharged in stable condition via Wheelchair to Home with *Other. All belongings sent with pt. PT TRANSPORTED TO [facility] IN STABLE CONDITION VIA WHEELCHAIR ACCOMPANIED BY WRITTER FOR D/C HOME;PT TO TRANSPORT SELF HOME.
== END 2020-06-17 18:50 | disposition home or self-care (01) ==
LOC: ED 12:17 → ED-I 14:36 → ED 14:46 → ED-I 14:47 → MS2 17:10
PROVIDERS: Family Medicine; Nurse Practitioner Family; ADMIT Internal Medicine; ATTEND Internal Medicine
PROC: 02HV33Z Insertion of Infusion Device into Superior Vena Cava, Percutaneous Approach (ICD-10-PCS; principal; 2020-06-17)
PROC: B548ZZA Ultrasonography of Superior Vena Cava, Guidance (ICD-10-PCS; 2020-06-17)
DX: T82.42XA Displacement of vascular dialysis catheter, initial encounter (principal); I13.2 Hypertensive heart and chronic kidney disease with heart failure and with stage 5 chronic kidney disease, or end stage renal disease; E11.22 Type 2 diabetes mellitus with diabetic chronic kidney disease; N18.6 End stage renal disease; I50.9 Heart failure, unspecified; E11.40 Type 2 diabetes mellitus with diabetic neuropathy, unspecified; J44.9 Chronic obstructive pulmonary disease, unspecified; Y83.8 Other surgical procedures as the cause of abnormal reaction of the patient, or of later complication, without mention of misadventure at the time of the procedure; Z79.4 Long term (current) use of insulin; Z99.2 Dependence on renal dialysis; Z20.828 Contact with and (suspected) exposure to other viral communicable diseases

== ENCOUNTER → 2020-07-08 | Day surgery (SDC) | payer MEDICARE, OTHER ==
[~2020-07-08] MED LIST changes: +NEURONTIN100 MG PO
[2020-07-08 14:23] VITALS: BP 154/72
== END | disposition home or self-care (01) ==
LOC: ORM 10:46
PROVIDERS: ATTEND Surgery
PROC: 02W Heart and Great Vessels, Revision (ICD-10-PCS; principal; 2020-07-08)
DX: T82.42XA Displacement of vascular dialysis catheter, initial encounter (principal); I13.2 Hypertensive heart and chronic kidney disease with heart failure and with stage 5 chronic kidney disease, or end stage renal disease; E11.22 Type 2 diabetes mellitus with diabetic chronic kidney disease; N18.6 End stage renal disease; I50.9 Heart failure, unspecified; Z99.2 Dependence on renal dialysis; Z20.828 Contact with and (suspected) exposure to other viral communicable diseases; Y84.8 Other medical procedures as the cause of abnormal reaction of the patient, or of later complication, without mention of misadventure at the time of the procedure
CPT/HCPCS: Q9967

== ENCOUNTER 2021-03-26 19:26 | Emergency (ER) | payer MEDICARE, OTHER ==
[~2021-03-26] VITALS: Ht 180.3 cm; Wt 159.0 kg
[2021-03-26 20:29] LABS: IMMATURE GRANULOCYTES 0.1 % (0.0-5.0); MEAN CELL VOLUME 90.7 fL CALC (80.0-100.0); MEAN CORPUSCULAR HGB 27.6 pG CALC (26.0-32.0); MEAN CORPUSCULAR HGB CONC 30.4 g/dL CAL (32.0-36.0); NEUT# 5.02 thou/uL (2.00-7.15); RED BLOOD COUNT 4.5 mill/uL (4.20-5.60); RED CELL DISTRI WIDTH 17.9 % (11.5-15.5)
[2021-03-26 20:30] LABS: HEMATOCRIT 40.8 % (37.0-47.0); HEMOGLOBIN 12.4 g/dl (12.0-16.0)
[2021-03-26 20:44] LABS: INTERNATIONAL NORMALIZED RATIO 1.1 RATIO (0.7-1.3); PROTHROMBIN TIME 11.1 SECONDS (9.0-12.5)
[2021-03-26 21:04] LABS: ALBUMIN 4.5 g/dL (3.2-5.0); BILIRUBIN, TOTAL 0.4 mg/dL (0.0-1.4); TOTAL PROTEIN 8.8 g/dL (6.3-8.2)
[2021-03-26 21:05] LABS: CREATININE 12.3 mg/dL (0.5-1.0); POTASSIUM 6.5 mmol/l (3.5-5.1)
[2021-03-26 23:09] VITALS: BP 105/81
== END 2021-03-26 23:10 | disposition short-term general hospital (02) ==
LOC: ED 19:26
PROVIDERS: Family Medicine
DX: U07.1 COVID-19 (principal); M62.82 Rhabdomyolysis; E11.22 Type 2 diabetes mellitus with diabetic chronic kidney disease; I13.2 Hypertensive heart and chronic kidney disease with heart failure and with stage 5 chronic kidney disease, or end stage renal disease; I50.9 Heart failure, unspecified; N18.6 End stage renal disease; E87.5 Hyperkalemia; Z99.2 Dependence on renal dialysis; Z79.4 Long term (current) use of insulin

== ENCOUNTER 2022-04-30 13:57 | Observation (INO) | payer MEDICARE, MEDICAID ==
[~2022-04-30] VITALS: Ht 180.3 cm; Wt 140.0 kg
[2022-04-30 14:24] VITALS: BP 148/60
[2022-04-30 14:41] LABS: HEMOGLOBIN 10.5 g/dl (12.0-16.0); IMMATURE GRANULOCYTES 0.3 % (0.0-5.0); MEAN CELL VOLUME 94.9 fL CALC (80.0-100.0); MEAN CORPUSCULAR HGB 28.5 pG CALC (26.0-32.0); NEUT# 4.5 thou/uL (2.00-7.15); RED BLOOD COUNT 3.69 mill/uL (4.20-5.60); RED CELL DISTRI WIDTH 14.6 % (11.5-15.5)
[2022-04-30 15:00] LABS: ALBUMIN 4.2 g/dL (3.2-5.0); BILIRUBIN, TOTAL 0.4 mg/dL (0.0-1.4); TOTAL PROTEIN 7.6 g/dL (6.3-8.2)
[2022-04-30 15:04] LABS: CREATININE 10.1 mg/dL (0.5-1.0)
[2022-04-30 16:01] VITALS: BP 172/84
[2022-04-30 17:54] VITALS: BP 172/84
== END 2022-04-30 23:35 | disposition left against medical advice (07) ==
LOC: ED 13:57 → ED-I 17:14 → ED 17:45 → ANR-I 17:46
PROVIDERS: Family Medicine; ADMIT Internal Medicine; ATTEND Internal Medicine
PROC: 5A1D70Z Performance of Urinary Filtration, Intermittent, Less than 6 Hours Per Day (ICD-10-PCS; principal; 2022-04-30)
DX: I13.2 Hypertensive heart and chronic kidney disease with heart failure and with stage 5 chronic kidney disease, or end stage renal disease (principal); E11.22 Type 2 diabetes mellitus with diabetic chronic kidney disease; N18.6 End stage renal disease; I50.9 Heart failure, unspecified; Z99.2 Dependence on renal dialysis; N25.81 Secondary hyperparathyroidism of renal origin; D64.9 Anemia, unspecified; E11.40 Type 2 diabetes mellitus with diabetic neuropathy, unspecified; J44.9 Chronic obstructive pulmonary disease, unspecified; E66.9 Obesity, unspecified; M54.50 Low back pain, unspecified; W19.XXXA Unspecified fall, initial encounter; Z79.4 Long term (current) use of insulin

== ENCOUNTER 2022-12-29 06:54 | Emergency (ER) | payer MEDICARE, MEDICAID ==
[~2022-12-29] VITALS: Ht 180.3 cm; Wt 136.0 kg
[~2022-12-29 06:54] MED LIST changes: +LEVEMIR100 UNIT SC; -LEVEMIR100 UNIT/M SC
[2022-12-29 07:05] VITALS: BP 199/81
[2022-12-29 07:39] LABS: BASO% 0.5 % (0-3); EOS% 1.9 % (0-8); HEMATOCRIT 34.6 % (37.0-47.0); HEMOGLOBIN 10.7 g/dl (12.0-16.0); IMMATURE GRANULOCYTES 0.2 % (0.0-5.0); LYMPH% 23.9 % (15-41); MEAN CORPUSCULAR HGB 28.8 pG CALC (26.0-32.0); MEAN CORPUSCULAR HGB CONC 30.9 g/dL CAL (32.0-36.0); MONO% 9.7 % (2-13); NEUT# 6.55 thou/uL (2.00-7.15); NEUT% 63.8 % (42-76); RED BLOOD COUNT 3.72 mill/uL (4.20-5.60); RED CELL DISTRI WIDTH 13.1 % (11.5-15.5)
[2022-12-29 07:52] LABS: ALBUMIN 4.6 g/dL (3.2-5.0); BILIRUBIN, TOTAL 0.4 mg/dL (0.02-1.3); PROTHROMBIN TIME 10.2 SECONDS (9.0-12.5); TOTAL PROTEIN 8.4 g/dL (6.3-8.2)
[2022-12-29 08:00] LABS: CREATININE 8.4 mg/dL (0.5-1.0); POTASSIUM 3.5 mmol/l (3.5-5.1)
[2022-12-29 08:01] VITALS: BP 181/80
[2022-12-29 08:15] LABS: URINE BILIRUBIN - DIPSTICK NEGATIVE (NEGATIVE); URINE BLOOD DIPSTICK MODERATE (NEGATIVE); URINE COLOR YELLOW; URINE GLUCOSE - DIPSTICK NEGATIVE (NEGATIVE); URINE KETONE NEGATIVE (NEGATIVE); URINE LEUK ESTERASE NEGATIVE (NEGATIVE); URINE NITRITE - DIPSTICK NEGATIVE (Negative); URINE PH 7.5 (4.5-8.0); URINE PROTEIN - DIPSTICK 100 mg/dL (NEG-TRACE); URINE SPECIFIC GRAVITY 1.015; URINE UROBILINOGEN - DIPSTICK 0.2 E.U./dL (0.2)
[2022-12-29 08:23] LABS: URINE RBC 0-2 RBC/hpf (0-5); URINE SQUAMOUS EPITHELIAL CELL RARE EPI/hpf (0-FEW)
[2022-12-29 09:00] VITALS: BP 193/104
[2022-12-29 09:20] VITALS: BP 193/104
== END 2022-12-29 09:25 | disposition left against medical advice (07) ==
LOC: ED 06:54
PROVIDERS: Family Medicine
DX: I63.9 Cerebral infarction, unspecified (principal); R41.0 Disorientation, unspecified; R29.701 NIHSS score 1; I13.2 Hypertensive heart and chronic kidney disease with heart failure and with stage 5 chronic kidney disease, or end stage renal disease; E11.22 Type 2 diabetes mellitus with diabetic chronic kidney disease; I50.9 Heart failure, unspecified; N18.6 End stage renal disease; Z99.2 Dependence on renal dialysis; Z79.4 Long term (current) use of insulin; Z53.29 Procedure and treatment not carried out because of patient's decision for other reasons; E11.40 Type 2 diabetes mellitus with diabetic neuropathy, unspecified
CPT/HCPCS: Q9967

== ENCOUNTER 2022-12-30 00:32 | Inpatient (IN) | payer MEDICARE, MEDICAID ==
[2022-12-30] VITALS (32 sets, daily range): BP systolic 87–172; BP diastolic 43–100
[~2022-12-30] VITALS: Ht 180.3 cm; Wt 147.2 kg
[2022-12-30 01:42] LABS: BASO% 0.3 % (0-3); HEMATOCRIT 32.9 % (37.0-47.0); HEMOGLOBIN 10.1 g/dl (12.0-16.0); IMMATURE GRANULOCYTES 0.5 % (0.0-5.0); LYMPH% 24.7 % (15-41); MEAN CELL VOLUME 92.9 fL CALC (80.0-100.0); MEAN CORPUSCULAR HGB 28.5 pG CALC (26.0-32.0); MEAN CORPUSCULAR HGB CONC 30.7 g/dL CAL (32.0-36.0); MONO% 8.8 % (2-13); NEUT# 6.1 thou/uL (2.00-7.15); NEUT% 63.7 % (42-76); RED BLOOD COUNT 3.54 mill/uL (4.20-5.60); RED CELL DISTRI WIDTH 13.2 % (11.5-15.5)
[2022-12-30 01:59] LABS: ALBUMIN 4.3 g/dL (3.2-5.0); ALKALINE PHOSPHATASE 60 u/l (38-126); ANION GAP 16 (6-22 (CALC)); BILIRUBIN, TOTAL 0.3 mg/dL (0.02-1.3); BUN 59 mg/dL (7-17); BUN/CREATININE RATIO 7 (12-20 (CALC)); CARBON DIOXIDE 28 mmol/l (22-30); CHLORIDE 92 mmol/l (95-108); ETHYL ALCOHOL 0 mg/dl (0-30); GFR FOR AFR.AMER. 5 ML/MIN (>=60 (CALC)); GFR OTHER RACES 4 ML/MIN (>=60 (CALC)); POTASSIUM 3.4 mmol/l (3.5-5.1); SGOT/AST 41 u/l (14-36); SODIUM 134 mmol/l (137-146); TOTAL PROTEIN 7.8 g/dL (6.3-8.2)
[2022-12-30 14:29] LABS: URINE BILIRUBIN - DIPSTICK NEGATIVE (NEGATIVE); URINE BLOOD DIPSTICK MODERATE (NEGATIVE); URINE COLOR YELLOW; URINE GLUCOSE - DIPSTICK NEGATIVE (NEGATIVE); URINE KETONE NEGATIVE (NEGATIVE); URINE LEUK ESTERASE NEGATIVE (NEGATIVE); URINE PROTEIN - DIPSTICK 100 mg/dL (NEG-TRACE); URINE UROBILINOGEN - DIPSTICK 0.2 E.U./dL (0.2)
[2022-12-30 14:32] LABS: URINE NITRITE - DIPSTICK NEGATIVE (Negative)
[2022-12-30 14:43] LABS: URINE BACTERIA FEW hpf; URINE RBC 0-2 RBC/hpf (0-5); URINE SQUAMOUS EPITHELIAL CELL MODERATE EPI/hpf (0-FEW); URINE WBC 0-2 WBC/hpf (0-5)
[2022-12-31] VITALS (14 sets, daily range): BP systolic 104–196; BP diastolic 68–112
[2022-12-31 08:13] LABS: HEMATOCRIT 31.5 % (37.0-47.0); HEMOGLOBIN 9.3 g/dl (12.0-16.0); MEAN CELL VOLUME 95.7 fL CALC (80.0-100.0); MEAN CORPUSCULAR HGB 28.3 pG CALC (26.0-32.0); MEAN CORPUSCULAR HGB CONC 29.5 g/dL CAL (32.0-36.0); RED BLOOD COUNT 3.29 mill/uL (4.20-5.60); RED CELL DISTRI WIDTH 13.5 % (11.5-15.5)
[2022-12-31 08:47] LABS: ALBUMIN 3.8 g/dL (3.2-5.0); BILIRUBIN, TOTAL 0.3 mg/dL (0.02-1.3); TOTAL PROTEIN 7.1 g/dL (6.3-8.2)
[2022-12-31 08:53] LABS: CREATININE 8.9 mg/dL (0.5-1.0); MAGNESIUM 1.9 mg/dL (1.6-2.3); POTASSIUM 4.3 mmol/l (3.5-5.1)
[2023-01-01 05:29] VITALS: BP 155/63
[2023-01-01 05:45] LABS: HEMATOCRIT 31.2 % (37.0-47.0); HEMOGLOBIN 9.3 g/dl (12.0-16.0); MEAN CELL VOLUME 96.3 fL CALC (80.0-100.0); MEAN CORPUSCULAR HGB 28.7 pG CALC (26.0-32.0); MEAN CORPUSCULAR HGB CONC 29.8 g/dL CAL (32.0-36.0); RED BLOOD COUNT 3.24 mill/uL (4.20-5.60); RED CELL DISTRI WIDTH 13.7 % (11.5-15.5)
[2023-01-01 06:04] LABS: ALBUMIN 3.8 g/dL (3.2-5.0); BILIRUBIN, TOTAL 0.3 mg/dL (0.02-1.3); MAGNESIUM 1.7 mg/dL (1.6-2.3); POTASSIUM 4.3 mmol/l (3.5-5.1); TOTAL PROTEIN 7.1 g/dL (6.3-8.2)
[2023-01-01 06:27] LABS: CREATININE 7.4 mg/dL (0.5-1.0)
[2023-01-01 16:00] VITALS: BP 135/78
[2023-01-01 19:00] VITALS: BP 127/50
[2023-01-01 19:40] VITALS: BP 127/50
[2023-01-02] VITALS (35 sets, daily range): BP systolic 87–144; BP diastolic 33–88
[2023-01-02 05:58] LABS: HEMATOCRIT 31.7 % (37.0-47.0); HEMOGLOBIN 9.4 g/dl (12.0-16.0); MEAN CELL VOLUME 98.1 fL CALC (80.0-100.0); MEAN CORPUSCULAR HGB 29.1 pG CALC (26.0-32.0); MEAN CORPUSCULAR HGB CONC 29.7 g/dL CAL (32.0-36.0); RED BLOOD COUNT 3.23 mill/uL (4.20-5.60); RED CELL DISTRI WIDTH 13.8 % (11.5-15.5)
[2023-01-02 06:18] LABS: ALBUMIN 4.2 g/dL (3.2-5.0); BILIRUBIN, TOTAL 0.3 mg/dL (0.02-1.3); MAGNESIUM 1.8 mg/dL (1.6-2.3); POTASSIUM 5.1 mmol/l (3.5-5.1); TOTAL PROTEIN 7.8 g/dL (6.3-8.2)
[2023-01-02 06:42] LABS: CREATININE 10.2 mg/dL (0.5-1.0)
[2023-01-03] VITALS (7 sets, daily range): BP systolic 105–146; BP diastolic 40–63
[2023-01-04] VITALS (7 sets, daily range): BP systolic 131–170; BP diastolic 47–91
[2023-01-04 06:19] LABS: HEMATOCRIT 29.2 % (37.0-47.0); HEMOGLOBIN 8.7 g/dl (12.0-16.0); MEAN CELL VOLUME 95.4 fL CALC (80.0-100.0); MEAN CORPUSCULAR HGB 28.4 pG CALC (26.0-32.0); MEAN CORPUSCULAR HGB CONC 29.8 g/dL CAL (32.0-36.0); RED BLOOD COUNT 3.06 mill/uL (4.20-5.60); RED CELL DISTRI WIDTH 13.4 % (11.5-15.5)
[2023-01-04 06:29] LABS: ALBUMIN 3.8 g/dL (3.2-5.0); BILIRUBIN, TOTAL 0.3 mg/dL (0.02-1.3); MAGNESIUM 1.8 mg/dL (1.6-2.3); TOTAL PROTEIN 6.7 g/dL (6.3-8.2)
[2023-01-04 06:40] LABS: CREATININE 12.7 mg/dL (0.5-1.0)
== END 2023-01-04 18:02 | DRG 917 ==
LOC: ED 00:32 → ED-I 08:25 → ED 08:41 → ICU 08:42 → MS2 12-31 11:22 → ICU 01-02 11:45 → MS2 01-03 15:03
PROVIDERS: Family Medicine; ADMIT Internal Medicine; ATTEND Internal Medicine
PROC: 5A1D70Z Performance of Urinary Filtration, Intermittent, Less than 6 Hours Per Day (ICD-10-PCS; principal; 2022-12-30)
PROC: 5A1D70Z Performance of Urinary Filtration, Intermittent, Less than 6 Hours Per Day (ICD-10-PCS; 2022-12-31)
PROC: 5A09357 Assistance with Respiratory Ventilation, Less than 24 Consecutive Hours, Continuous Positive Airway Pressure (ICD-10-PCS; 2023-01-02)
PROC: 5A1D70Z Performance of Urinary Filtration, Intermittent, Less than 6 Hours Per Day (ICD-10-PCS; 2023-01-04)
DX: T50.902A Poisoning by unspecified drugs, medicaments and biological substances, intentional self-harm, initial encounter (principal); G92.8 Other toxic encephalopathy; N18.6 End stage renal disease; J96.02 Acute respiratory failure with hypercapnia; J96.01 Acute respiratory failure with hypoxia; I63.9 Cerebral infarction, unspecified; I13.2 Hypertensive heart and chronic kidney disease with heart failure and with stage 5 chronic kidney disease, or end stage renal disease; E87.1 Hypo-osmolality and hyponatremia; N25.81 Secondary hyperparathyroidism of renal origin; E87.29 Other acidosis; Z68.42 Body mass index [BMI] 45.0-49.9, adult; E11.22 Type 2 diabetes mellitus with diabetic chronic kidney disease; E87.6 Hypokalemia; E11.649 Type 2 diabetes mellitus with hypoglycemia without coma; T38.3X1A Poisoning by insulin and oral hypoglycemic [antidiabetic] drugs, accidental (unintentional), initial encounter; I50.9 Heart failure, unspecified; J44.9 Chronic obstructive pulmonary disease, unspecified; D63.1 Anemia in chronic kidney disease; E11.40 Type 2 diabetes mellitus with diabetic neuropathy, unspecified; G47.30 Sleep apnea, unspecified; R50.9 Fever, unspecified; E66.9 Obesity, unspecified; Z99.2 Dependence on renal dialysis; Z79.4 Long term (current) use of insulin; R41.0 Disorientation, unspecified; R29.701 NIHSS score 1; Z53.29 Procedure and treatment not carried out because of patient's decision for other reasons
CPT/HCPCS: J1644; J2060; Q9967; S0166

== ENCOUNTER 2023-04-04 13:16 | Inpatient (IN) | payer MEDICARE, MEDICAID ==
[2023-04-04] VITALS (118 sets, daily range): BP systolic 118–198; BP diastolic 61–100
[~2023-04-04] VITALS: Ht 180.3 cm; Wt 143.0 kg
--- NOTE | 2023-04-04 13:16 | NUR ---
PT TO ROOM 12 VIA EMS STRETCHER, PROVIDER AT BEDSIDE, EKG, I/V, LABS OBTAINED, RT IMMEDIATELY TO ROOM FOR ABG, PT PUT ON O2 2L VIA NC, CALL LIGHT IN REACH.
--- NOTE | 2023-04-04 13:40 | NUR ---
RT IN ROOM PLACED PT ON BYPAP 14/6 AT 40%, I/V ESTABLISHED, PROVIDER IN ROOM FOR EXAM.
--- NOTE | 2023-04-04 14:00 | NUR ---
IN ROOM TO START PT ON NITRO GTT PER ORDERS, PT STILL LETHARGIC, RT IN ROOM, PROVIDER AT BEDSIDE.
[2023-04-04] MEDS ORDERED: PHOSLO667 MG PO (14:07)
[2023-04-04 14:10] LABS: BASO% 0.5 % (0-3); EOS% 3.1 % (0-8); HEMATOCRIT 32.8 % (37.0-47.0); HEMOGLOBIN 9.4 g/dl (12.0-16.0); IMMATURE GRANULOCYTES 0.2 % (0.0-5.0); LYMPH% 20.6 % (15-41); MEAN CELL VOLUME 99.4 fL CALC (80.0-100.0); MEAN CORPUSCULAR HGB 28.5 pG CALC (26.0-32.0); MEAN CORPUSCULAR HGB CONC 28.7 g/dL CAL (32.0-36.0); MONO% 7.3 % (2-13); NEUT# 5.88 thou/uL (2.00-7.15); NEUT% 68.3 % (42-76); RED BLOOD COUNT 3.3 mill/uL (4.20-5.60); RED CELL DISTRI WIDTH 15.5 % (11.5-15.5)
[2023-04-04] MEDS ORDERED: GLIPIZIDE5 M2 PO (14:12)
[2023-04-04 14:22] LABS: ALBUMIN 4.4 g/dL (3.2-5.0); POTASSIUM 4.7 mmol/l (3.5-5.1); TOTAL PROTEIN 8.5 g/dL (6.3-8.2)
--- NOTE | 2023-04-04 14:25 | NUR ---
PT SITTING UP IN BED, TALKING ON PHONE WITH DAUGHTER GARYZURDOS, RT IN ROOM FOR [facility].
[2023-04-04 14:28] LABS: BILIRUBIN, TOTAL 0.5 mg/dL (0.02-1.3); CREATININE 10.1 mg/dL (0.5-1.0)
--- NOTE | 2023-04-04 15:04 | NUR ---
PT IS MORE ALERT, ASKING TO SIT UP IN CHAIR, MORE VERBALLY RESPONSIVE. VSS, NAD NOTED.
--- NOTE | 2023-04-04 15:20 | NUR ---
PT VSS, SITTING UP IN BED, ICU ADVISED PT BEING BROUGHT UP WILL GIVE REPORT AT BEDSIDE, PT TO ICU VIA STRETCHER WITH RT'S HELP, NITRO GTT @ 55 MCG/MIN, FLUIDS KVO, ALL BELONGIGNS SENT WITH PT TO ICU.
--- NOTE | 2023-04-04 16:00 | NUR ---
PT ARRIVED TO ICU BY STRETCHER ON BIPAP AND NITRO DRIP. PT IS A/O BUT SOMETIMES SLOW TO RESPOND. PT AMBULATED TO BED WITH DIFFICULTY, AND HAD TO SIT BACK DOWN BEFORE FALLING. PT TRIED AGAIN TO GET TO BED AND DID SO SUCCESSFULLY. LUNGS DIMINISHED; PT CURRENTLY ON BIPAP. PT REPORTS WEARING 2L NC AT HOME BUT ONLY AT NIGHT. HEART RHYTHM REGULAR; PT IS NSR ON MONITOR. BOWEL SOUNDS ACTIVE. PT REPORTS LAST BM WAS TODAY. PT HAS NOT VOIDED YET; URINE NOT INSPECTED. PULSES STRONG ALL EXTREMETIES; SKIN W/D/I. BP ON ARRIVAL 135/61; NITRO GTT AT 55MCG/MIN. IV ACCESS 20G RAC. PT HAS UNACCESSED DIALYSIS CATHETER. DIETETIC TECHNICIAN REGISTERED AT BEDSIDE TO SET UP DIALYSIS TREATMENT FOR TODAY; PT MISSED SCHEDULED TREATMENT TODAY DUE TO BEING IN ED. PT DENIES ANY PAIN. CALL LIGHT IN REACH, VSS.
--- NOTE | 2023-04-04 16:28 | NUR ---
HEMODIALYSIS TREATMENT INITIATED AT . 16:28 SEE HEMODIALYSIS TREATMENT PROCESS INTERVENTION AND TABLO TREATMENT FLOWSHEET FOR TREATMENT SPECIFIC DETAILS.
--- NOTE | 2023-04-04 16:32 | NUR ---
HEMODIALYSIS TREATMENT COMPLETED AT . 1632 SEE HEMODIALYSIS TREATMENT PROCESS INTERVENTION AND TABLO TREATMENT FLOWSHEET FOR TREATMENT SPECIFIC DETAILS.
--- NOTE | 2023-04-04 18:12 | NUR ---
PT ASLEEP IN BED. DIALYSIS TREATMENT IN PROGRESS. VSS. CALL THOR CR.
--- NOTE | 2023-04-04 19:00 | NUR ---
REPORT RECEIVED FROM OFF GOING NURSE.
--- NOTE | 2023-04-04 20:00 | NUR ---
PATIENT NOTED LYING IN BED WITH HOB ELEVATED. SHE IS NOTED ON BIPAP AT THIS TIME. NO ACUTE DISTRESS NOTED AT THIS TIME. HER SATS ARE IN THE LOW TO MID 90S. ASSESSMENT COMPLETE. SHE IS ALERT AND ORIENTED X3. WHEEZING AND RHONCHI NOTED IN UPPER LUNGS, SHE IS DIMINISHED IN THE BASES. SHE IS SINUS RHYTHM ON THE MONITOR. BOWEL SOUNDS ACTIVE IN ALL FOUR QUADS. SKIN INTACT. NO EDEMA NOTED. SHE DENIES ANY PAIN OR DISOCOMFORT AT THIS TIME. SHE IS ASKING TO EAT. MD PRESENT, DIET ORDER RECEIVED. WILL CONTINJUE TO MONITOR.
--- NOTE | 2023-04-04 20:30 | NUR ---
PATIENT OFF BIPAP WITH SPO2 91% OM 3L/NC
--- NOTE | 2023-04-04 22:00 | NUR ---
PATIENT RESTING COMFORTABLY ON BIPAP. NO ACUTE DISTRESS NOTED. WILL CONTINUE TO MONITOR.
[2023-04-05] VITALS (97 sets, daily range): BP systolic 90–189; BP diastolic 57–104
--- NOTE | 2023-04-05 | NUR ---
PATIENT LYING IN BED WITH HOB ELEVATED WITH BIPAP ON. NO ACUTE DISTRESS NOTED. HER SATS REMAIN IN THE MID 90S. SHE IS STILL ON NITRO DRIP AT 50, HER BP IS FLUNCTUATING FROM 140S - 160S SYSTOLIC. CALL LIGHT WITHIN REACH.
--- NOTE | 2023-04-05 00:06 | NUR ---
FIO2 LOWERED TO 30%, SATS IN MID 90S.
--- NOTE | 2023-04-05 01:30 | NUR ---
PATIENT LYING IN BED WITH NO ACUTE DISTRESS NOTED. BP NOTED ELEVATED, PULSE NOTED IN 120S SUSTAINED. MD CONTACTED. ORDER FOR 1X DOSE FOR LEBATELOL RECEIVED AND GIVEN. WILL CONTINUE TO MONITOR.
--- NOTE | 2023-04-05 02:00 | NUR ---
PATINT RESTING COMFORTABLY ON BIPAP, NO ACUTE DISTRESS NOTED. SATS REAMAINS IN THE MID 90S. WILL CONTINUE TO MONOITOR.
--- NOTE | 2023-04-05 04:00 | NUR ---
PATIENT LYING IN BED RESTING COMFORTABLY IN BED WITH NO ACUTE DISTRESS NOTED. HR STILL IN 120S. WILL CONTINUE TO MONITOR.
--- NOTE | 2023-04-05 04:00 | NUR ---
PATIENT NOTED LYING IN BED RESITN COMFORTABLY WITH HOB ELEVATED. SHE IS ON BIPAP, SATS REMAIN IN THE MID 90S. NO ACUTE DISTRESS NOTD. WILL CONTINUE TO MONITOR.
--- NOTE | 2023-04-05 04:30 | NUR ---
CARDIZEM DRIP STARTED AT 10. NO ACUTE DISTRESS NOTED. WILL CONTINUE TO MONITOR.
--- NOTE | 2023-04-05 06:00 | NUR ---
PATIENT LYING IN BED ON BIPAP WITH NO ACUTE DISTRESS NOTED. BED LOCKED, IN LOW POSITION CALL LIGHT WITHIN REACH.
--- NOTE | 2023-04-05 06:55 | NUR ---
WHILE RECIEVING REPORT FROM RAHEEL, [employer] LABORER INFORMED ME THAT IV WAS REMOVED FROM PATIENT INADVERTENTLY. I TURNED OFF IV PUMP AND ASSESSED PATIENT. PATIENT OTHERWISE STABLE, AOX3, NON LABORED RESPIRATIONS, NO C/O OF PAIN. NOW LOOKING FOR ANOTHER IV SITE. BED IN LOW POSITION WITH UPPER BED RAILS RAISED AND CALL LIGHT WITHIN REACH.
[2023-04-05 07:44] LABS: BASO% 0.1 % (0-3); HEMATOCRIT 31.9 % (37.0-47.0); HEMOGLOBIN 9.5 g/dl (12.0-16.0); IMMATURE GRANULOCYTES 0.9 % (0.0-5.0); LYMPH% 16.3 % (15-41); MEAN CELL VOLUME 96.1 fL CALC (80.0-100.0); MEAN CORPUSCULAR HGB 28.6 pG CALC (26.0-32.0); MEAN CORPUSCULAR HGB CONC 29.8 g/dL CAL (32.0-36.0); MONO% 2.2 % (2-13); NEUT# 5.46 thou/uL (2.00-7.15); NEUT% 80.5 % (42-76); RED BLOOD COUNT 3.32 mill/uL (4.20-5.60); RED CELL DISTRI WIDTH 15.2 % (11.5-15.5)
[2023-04-05 07:50] LABS: POTASSIUM 5.1 mmol/l (3.5-5.1)
[2023-04-05 08:20] LABS: ALBUMIN 3.9 g/dL (3.2-5.0); BILIRUBIN, TOTAL 0.4 mg/dL (0.02-1.3); POTASSIUM 5.1 mmol/l (3.5-5.1); TOTAL PROTEIN 7.4 g/dL (6.3-8.2)
[2023-04-05 08:27] LABS: CREATININE 8.3 mg/dL (0.5-1.0)
--- NOTE | 2023-04-05 09:00 | NUR ---
PATIENT RESTING IN BED WITH OUT PAIN OR DISTRESS. IV NITRO RUNNING AND TITRATED DOWN FROM 55 TO 50MCG PER/HR. HR AND BP REMAINS STABLE. DAUGHTER AT BEDSIDE AND HELPED CLEAN PATIENT AND CHANGE BED LINENS. PATIENT ATE MOST OF HER BREAKFAST. O2 SATS REMAIN >93. BLOOD GLUCOSE AT 245 THIS MORNING.
--- NOTE | 2023-04-05 11:00 | NUR ---
PATIENT RESTING IN BED AOX3 AND WITHOUT DISTRESS. BP AND HR REMAIN STABLE AND NITRO DRIP STILL RUNNING. PATIENT ABLE TO STAND AND TURN TO USE BSC; SHE HAD A LOOSE BM. BLOOD GLUCOSE 349, 4 UNITS OF INSULIN LISPRO ADMINISTERED. BED IN LOW POSITION WITH UPPER BED RAILS RAISED AND CALL LIGHT WITHIN REACH.
--- NOTE | 2023-04-05 13:00 | NUR ---
PATIENT RESTING IN BED AOX3 WITHOUT PAIN OR DISTRESS. BP AND HR REMAIN STABLE WITH NITRO TITRATED DOWN FROM 45 TO 40MCG. O2 SATS REMAIN >93. PATIENT EATING HER MEALS AND ANSWERING QUESTIONS APPROPRIATELY.
--- NOTE | 2023-04-05 14:30 | NUR ---
PT LYING IN BED TALKING WITH VISITOR. CALL LIGHT AND BELONGINGS WITHIN REACH. VSS.
--- NOTE | 2023-04-05 16:00 | NUR ---
PT LYING IN BED. PT'S DAUGHTER AT BEDSIDE. NO CHANGES TO PT STATUS AT THIS TIME. PT REMAINS ON NITRO GTT FOR BP. CALL LIGHT IN REACH. VSS.
--- NOTE | 2023-04-05 17:00 | NUR ---
DR. RODRIGUEZ NOTIFIED OF PT'S ELEVATED GLUCOSE LEVEL. ORDERS PLACED BY DR. RODRIGUEZ. PT EDUCATED ON MEDICATIONS.
--- NOTE | 2023-04-05 19:00 | NUR ---
BEDSIDE REPORT RECEIVED FROM Rdaha ALCALA RN, CARE OF PT ASSUMED AT THIS TIME.
--- NOTE | 2023-04-05 19:51 | NUR ---
PT ON THE PHONE, DENIES NEEDS AT THIS TIME.
--- NOTE | 2023-04-05 20:09 | NUR ---
POINT OF CARE GLUCOSE 404mg/dl. SERUM GLUCOSE ORDERED.
--- NOTE | 2023-04-05 21:00 | NUR ---
NITRO GTT TITRATED TO 30MCG/MIN.
--- NOTE | 2023-04-05 21:18 | NUR ---
LAB UNABLE TO OBTAIN SERUM GLUCOSE. PT IS DIFFICULT TO OBTAIN VENIPUNCTURE. DR. RODRIGUEZ MADE AWARE OF ELAVATED GLUCOSE AND DIFFICULTY OBTAINING SERUM SAMPLE. ORDERS RECEIVED TO TREAT HYPERGLYCEMIA, SEE E-MAR. FURTHER LAB WORK DEFFERED UNTIL AM LABS.
--- NOTE | 2023-04-05 21:40 | NUR ---
AFTER RECEIVING ADDITIONAL INSULIN PRESCRIBED FOR ELEVATED GLUCOSE PT PROCEEDS TO PULL ADDITIONAL MEAL FROM PERSONAL BELONGING. EDUCATION PROVIDED ON DIETARY CONSIDERATIONS AND HYPERGLYCEMIA. PT PROCCEEDS TO EAT FOOD DESPITE EDUCATION. DR. RODRIGUEZ AWARE.
--- NOTE | 2023-04-05 22:45 | NUR ---
NITRO GTT TITRATED TO 25MCG/MIN.
--- NOTE | 2023-04-05 23:15 | NUR ---
NITRO GTT TITRATED TO 20MCG/MIN.
--- NOTE | 2023-04-05 23:21 | NUR ---
ANSWERED PT'S CALL LIGHT, PT QUESTIONS IF OXYGEN IS "OK", ASSURED PT'S SPO2 IS 97%, QUESTIONED PT REGARDING SOB/DIFFICULTY BREATHING, PT DENIES. ON ASSESMENT NO CONCERN NOTED FOR PT'S BREATHING. PT STATES SHE WAS "JUST CHECKING".
[2023-04-06] VITALS (48 sets, daily range): BP systolic 58–197; BP diastolic 42–98
--- NOTE | 2023-04-06 00:15 | NUR ---
NITRO GTT TITRATED TO 15MCG/MIN.
--- NOTE | 2023-04-06 00:48 | NUR ---
PT REPORTS ITCHING BETWEEN BREAST, ON EXAM PT IS NOTED TO HAVE DRY FLAKY AREA TO MIDSTERNUM. PT REPORTS BEING DIAGNOSED WITH FUNGAL INFECTION TO AREA. WILL ENDORSE TO ONCOMING SHIFT FOR EVAL BY PROVIDER FOR POSSIBLE NTIFINGAL TOPICAL RX.
--- NOTE | 2023-04-06 03:15 | NUR ---
NITRO GTT TITRATED TO 10MCG/MIN.
--- NOTE | 2023-04-06 03:26 | NUR ---
PT APPEARS TO BE SLEEPING COMFORTABLY, RESPIRATIONS REGULAR AND UNLABORED, NO APPARENT DISTRESS. CALL BELTRÁN REMAINS WITHIN REACH.
--- NOTE | 2023-04-06 04:14 | NUR ---
BUSINESS ANALYST MANAGER AT BEDSIDE TO COLLECT AM LABS.
--- NOTE | 2023-04-06 04:31 | NUR ---
PER BEDSCALE PT IS 151KG, REPRESENTS 10KG INCREASE OVER PTS DRY WEIGHT, QUESTIONABLE ACCURACY. NO STANDING SCALE IN ICU. RECOMMEND STANDING SCALE WEIGHT TO VERIFY WITH DIALYSIS TODAY. WILL ENDORSE TO ONCOMING NURSE.
[2023-04-06 04:40] LABS: BASO% 0.1 % (0-3); HEMATOCRIT 28.7 % (37.0-47.0); HEMOGLOBIN 8.9 g/dl (12.0-16.0); IMMATURE GRANULOCYTES 0.8 % (0.0-5.0); LYMPH% 11.4 % (15-41); MEAN CELL VOLUME 92.6 fL CALC (80.0-100.0); MEAN CORPUSCULAR HGB 28.7 pG CALC (26.0-32.0); MONO% 3.5 % (2-13); NEUT# 7.8 thou/uL (2.00-7.15); NEUT% 84.2 % (42-76); RED BLOOD COUNT 3.1 mill/uL (4.20-5.60)
[2023-04-06 04:56] LABS: BILIRUBIN, TOTAL 0.4 mg/dL (0.02-1.3); CHOLESTEROL HDL RATIO 2.7 (<4.4 (CALC)); MAGNESIUM 1.9 mg/dL (1.6-2.3); TOTAL PROTEIN 7.7 g/dL (6.3-8.2)
[2023-04-06 05:00] LABS: CREATININE 9.1 mg/dL (0.5-1.0); POTASSIUM 5.7 mmol/l (3.5-5.1)
--- NOTE | 2023-04-06 06:02 | NUR ---
NITRO GTT DECREASED TO 5MCG/MIN.
--- NOTE | 2023-04-06 07:15 | NUR ---
PATIENT SLEEPING IN BED; PATIENT ASSESSED, O2 SATS >93, UNLABORED RESPIRATIONS, NO C/O OF PAIN, BLOOD GLUCOSE READING TAKEN, AOX3 AND ANSWERING QUESTIONS APPROPRIATELY.
--- NOTE | 2023-04-06 09:30 | NUR ---
PATIENT SITTING UPRIGHT ON EDGE OF BED, DAUGHTER AT BEDSIDE. PATIENT ATE 100% OF BREAKFAST. MORNING MEDS ADMINISTERED W/O ISSUES. NITRO DRIP TURNED OFF AFTER PO MEDS GIVEN. HR AND BP REMAIN STABLE.
--- NOTE | 2023-04-06 09:59 | NUR ---
CONTACTED DR MUHAMMAD'S OFFICE IN REFERENCE TO A PHYSICIAN CONSULT. I SPOKE WITH MICHELINE AT 0959 HRS.
--- NOTE | 2023-04-06 10:30 | NUR ---
PATIENT RESTING IN BED, AOX3, ANSWERING QUESTIONS APPROPRIATELY, NO CHANGES, BP AND HR REMAINING STABLE, O2 SATS >93. PATIENT REQUESTING TO USE 3L VIA NC PRN IF NAPPING. DAUGHTER AT BEDSIDE.
--- NOTE | 2023-04-06 12:30 | NUR ---
PATIENT RESTING IN BED, NO COMPLAINTS, HR AND BP REMAIN STABLE, PATIENT EATING ALL MEALS. DILAYSIS PENDING.
--- NOTE | 2023-04-06 14:15 | NUR ---
PATIENT SLEEPING; 3L O2 VIA NC FLOWING, HR AND BP STABLE, NON LABORED RESPIRATIONS. SNORING PRESENT WITH INTERMITTED DIPS IN O2 SATS TO UPPER 80'S THEN QUICKLY RECOVER TO >93.
--- NOTE | 2023-04-06 15:22 | NUR ---
HEMODIALYSIS TREATMENT INITIATED AT .1522 SEE HEMODIALYSIS TREATMENT PROCESS INTERVENTION AND TABLO TREATMENT FLOWSHEET FOR TREATMENT SPECIFIC DETAILS.
[2023-04-06] MEDS ORDERED: PREDNISONE20 MG PO (15:39)
[2023-04-06] MEDS ORDERED: CARVEDILOL12.5 MG PO (15:40)
[2023-04-06] MEDS ORDERED: NIFEDIPINE60 MG PO (15:41)
--- NOTE | 2023-04-06 16:15 | NUR ---
PATIENT RESTING IN BED, AOX3, ANSWERING QUESTIONS APPROPTRATELY, EATING ALL MEALS, NO C/O PAIN. BED IN LOW POSITION WITH UPPER BED RAILS RAISED AND CALL LIGHT WITHIN REACH.
--- NOTE | 2023-04-06 17:55 | NUR ---
HEMODIALYSIS TREATMENT COMPLETED AT .1755 SEE HEMODIALYSIS TREATMENT PROCESS INTERVENTION AND TABLO TREATMENT FLOWSHEET FOR TREATMENT SPECIFIC DETAILS.
--- NOTE | 2023-04-06 18:00 | NUR ---
PATIENT RESTING IN BED. DIALYSIS JUST FINISHED WITH NO ISSUES. 1700L REMOVED. DISCHARGE ORDER IN PLACE. VITALS STABLE, NO C/O OF PAIN. PATIENT STATES SHE IS READY TO GO HOME.
--- NOTE | 2023-04-06 19:20 | NUR ---
PT DOWN TO LOBBY VIA WHEELCHAIR.
== END 2023-04-06 19:20 | disposition home or self-care (01) | DRG 208 ==
LOC: ED 13:16 → ED-I 13:45 → ED 15:17 → ICU 15:18
PROVIDERS: Family Medicine; Internal Medicine Nephrology; Student in an Organized Health Care Education/Training Program; ADMIT Student in an Organized Health Care Education/Training Program; ATTEND Student in an Organized Health Care Education/Training Program
PROC: 5A1935Z Respiratory Ventilation, Less than 24 Consecutive Hours (ICD-10-PCS; principal; 2023-04-04)
PROC: 5A1D70Z Performance of Urinary Filtration, Intermittent, Less than 6 Hours Per Day (ICD-10-PCS; 2023-04-04)
PROC: 5A1D70Z Performance of Urinary Filtration, Intermittent, Less than 6 Hours Per Day (ICD-10-PCS; 2023-04-06)
DX: J96.02 Acute respiratory failure with hypercapnia (principal); N18.6 End stage renal disease; J44.1 Chronic obstructive pulmonary disease with (acute) exacerbation; I13.2 Hypertensive heart and chronic kidney disease with heart failure and with stage 5 chronic kidney disease, or end stage renal disease; N25.81 Secondary hyperparathyroidism of renal origin; Z68.42 Body mass index [BMI] 45.0-49.9, adult; I16.1 Hypertensive emergency; E87.29 Other acidosis; G93.40 Encephalopathy, unspecified; E11.22 Type 2 diabetes mellitus with diabetic chronic kidney disease; E11.42 Type 2 diabetes mellitus with diabetic polyneuropathy; E11.649 Type 2 diabetes mellitus with hypoglycemia without coma; I50.9 Heart failure, unspecified; D63.1 Anemia in chronic kidney disease; G47.33 Obstructive sleep apnea (adult) (pediatric); E66.01 Morbid (severe) obesity due to excess calories; T41.5X6A Underdosing of therapeutic gases, initial encounter; Z91.128 Patient's intentional underdosing of medication regimen for other reason; Z99.81 Dependence on supplemental oxygen; Z99.2 Dependence on renal dialysis; Z91.15 Patient's noncompliance with renal dialysis; Z79.4 Long term (current) use of insulin; Z79.84 Long term (current) use of oral hypoglycemic drugs; Z20.822 Contact with and (suspected) exposure to COVID-19
CPT/HCPCS: J1644; Q5106 EC

== ENCOUNTER 2024-06-23 02:22 | Emergency (ER) | payer MEDICARE, BC, MEDICAID ==
[2024-06-23] VITALS (16 sets, daily range): BP systolic 131–183; BP diastolic 56–92
[~2024-06-23] VITALS: Ht 180.3 cm; Wt 132.6 kg
[~2024-06-23 02:22] MED LIST changes: +GLIPIZIDE5 M2 PO; +NIFEDIPINE60 MG PO; +PHOSLO667 MG PO
[2024-06-23] MEDS ORDERED: NITROGLYCERIN 2% OINT UD 1 GM/PAK TD ONE (02:45)
[2024-06-23] MEDS ORDERED: SODIUM CHLORIDE 0.9% 100 ML IV ONE (02:49)
[2024-06-23] MEDS ORDERED: FUROSEMIDE 40 MG/4 ML SDV IV ONE (03:00)
[2024-06-23 03:01] LABS: BASO% 0.4 % (0-3); EOS% 2.2 % (0-8); HEMATOCRIT 35.2 % (37.0-47.0); HEMOGLOBIN 10.7 g/dl (12.0-16.0); IMMATURE GRANULOCYTES 1.2 % (0.0-5.0); LYMPH% 9.2 % (15-41); MEAN CELL VOLUME 84.6 fL CALC (80.0-100.0); MEAN CORPUSCULAR HGB 25.7 pG CALC (26.0-32.0); MEAN CORPUSCULAR HGB CONC 30.4 g/dL CAL (32.0-36.0); NEUT# 7.99 thou/uL (2.00-7.15); RED BLOOD COUNT 4.16 mill/uL (4.20-5.60); RED CELL DISTRI WIDTH 20.2 % (11.5-15.5)
[2024-06-23 03:11] LABS: ALBUMIN 4.4 g/dL (3.2-5.0); BILIRUBIN, TOTAL 0.8 mg/dL (0.02-1.3)
[2024-06-23 03:13] LABS: POTASSIUM 3.9 mmol/l (3.5-5.1)
[2024-06-23] MEDS ORDERED: INSULIN REGULAR (HUMAN) 100 UNIT/ML INJ SC ONE ×2 (04:30→05:45)
[2024-06-23 05:47] LABS: URINE BILIRUBIN - DIPSTICK Negative (NEGATIVE); URINE BLOOD DIPSTICK Trace-lysed (NEGATIVE); URINE GLUCOSE - DIPSTICK 500 mg/dL (NEGATIVE); URINE KETONE Negative (NEGATIVE); URINE LEUK ESTERASE Negative (NEGATIVE); URINE NITRITE - DIPSTICK Negative (Negative); URINE PH 8.5 (4.5-8.0); URINE PROTEIN - DIPSTICK >=300 mg/dL (NEG-TRACE); URINE SPECIFIC GRAVITY 1.025; URINE UROBILINOGEN - DIPSTICK 0.2 E.U./dL (0.2)
[2024-06-23 05:48] LABS: URINE COLOR Yellow
[2024-06-23 05:56] LABS: URINE RBC 0-2 RBC/hpf (0-5)
== END 2024-06-23 07:00 | disposition short-term general hospital (02) ==
LOC: ED 02:22
PROVIDERS: Family Medicine
DX: J44.1 Chronic obstructive pulmonary disease with (acute) exacerbation (principal); J81.1 Chronic pulmonary edema; R56.9 Unspecified convulsions; I12.0 Hypertensive chronic kidney disease with stage 5 chronic kidney disease or end stage renal disease; E11.22 Type 2 diabetes mellitus with diabetic chronic kidney disease; N18.6 End stage renal disease; Z99.2 Dependence on renal dialysis; Z79.84 Long term (current) use of oral hypoglycemic drugs; Z79.4 Long term (current) use of insulin
CPT/HCPCS: J1953